=== PATIENT | male | born 1990 | race Caucasian/White ===

== ENCOUNTER 2018-07-09 10:02 | Emergency (ER) | payer OTHER ==
[~2018-07-09] VITALS: Ht 165.1 cm; Wt 83.5 kg
[2018-07-09 10:28] VITALS: Ht 165.1 cm; Wt 83.5 kg
[2018-07-09 11:52] LABS: microscopic required? NO
[2018-07-09 12:17] LABS: urine erythrocyte NEGATIVE (NEGATIVE)
[2018-07-09 12:23] LABS: AMPHETAMINE QUAL UR POSITIVE (See below)
[2018-07-09 12:24] LABS: CARBON DIOXIDE 31.2 mmol/L (21-32); CHLORIDE SERUM 102 mmol/L (98-107); CREATININE SERUM 0.9 mg/dL (0.7-1.3); GFR1 > 60 mL/min; GLUCOSE SERUM 91 mg/dL (74-106); POTASSIUM SERUM 3.8 mmol/L (3.5-5.1); SODIUM SERUM 138 mmol/L (136-145)
[2018-07-09 12:27] LABS: BASOPHIL % 0.3 % (0-2); PLATELET COUNT 300 x10^3mcL (130-400); RED CELL DISTRIBUTION WIDTH 13.1 % (11.5-14.5)
[2018-07-09 12:29] LABS: ALBUMIN 3.8 g/dL (3.4-5.0); ALKALINE PHOSPHATASE 107 U/L (46-116); ALT/SGPT 46 U/L (16-63); AMYLASE 63 U/L (25-115); AST/SGOT 23 U/L (15-37); BILIRUBIN TOTAL 0.49 mg/dL (0.20-1.00); LIPASE 131 IU/L (73-393); TOTAL PROTEIN, SERUM 7.7 g/dL (6.4-8.2)
[2018-07-09 13:41] VITALS: BP 141/90
== END 2018-07-09 13:43 | disposition home or self-care (01) ==
LOC: ED 10:02
PROVIDERS: Emergency Medicine
DX: K80.20 Calculus of gallbladder without cholecystitis without obstruction (principal); F15.10 Other stimulant abuse, uncomplicated
CPT/HCPCS: J2270; J2550; J7030; Q9967